=== PATIENT | female | born 1975 | race African-American/Black ===

== ENCOUNTER 2016-12-22 22:27 | Emergency (ER) | payer OTHER, BC | END 2016-12-23 00:35 | disposition home or self-care (01) | LOC: D.ER 22:27 | DX: R07.9 Chest pain, unspecified (principal); S20.212A Contusion of left front wall of thorax, initial encounter; S20.211A Contusion of right front wall of thorax, initial encounter; S90.02XA Contusion of left ankle, initial encounter; V89.2XXA Person injured in unspecified motor-vehicle accident, traffic, initial encounter ==